=== PATIENT | female | born 1945 | race Caucasian/White ===

== ENCOUNTER 2018-03-01 12:48 | Emergency (ER) | payer MEDICARE, OTHER ==
[~2018-03-01] VITALS: Ht 162.6 cm; Wt 65.8 kg
[2018-03-01] MEDS ORDERED: NS IV 1000 ML 1,000 ML IV ONE (13:10)
--- NOTE | 2018-03-01 13:15 | ED General ---
General Chief Complaint: Fever-Adult/Adol Stated Complaint: FEVER VOMITING HEADACHE BODYACHES Nursing Triage Note: pt reports hsinve flu like symptoms: bodyaches, headache, fever, dry cough, poor appetite starting sunday; seen in dr randle's office and he stated it sounded like the flu and if no improvment to return to his office. pt states she's worsened throughout the week and began n/v/d this am. pt reports having 103 temp last evening. Nursing Sepsis Screen: No Definite Risk Source of Information: Patient, Caregiver History of Present Illness Date Seen by Provider: Mar 01, 2018 Time Seen by Provider: 13:01 Initial Comments Here with report of fever and flulike symptoms including body aches and headache over the last several days. This started on Sunday and has worsened all day. She did have some diarrhea and vomiting today. She was seen by her primary care doctor with these symptoms a few days ago and it was thought to be possibly influenza. She did have 2 tick bites just prior to the onset of these symptoms. She has improved since the vomiting and diarrhea earlier today. Denies breathing problems or chest pain but does feel a little weak. She does have a grandson that lives with her granddaughter down the street. Timing/Duration: 5-6 Days Severity: Moderate Associated Systoms: No Chest Pain, No Cough, No Diaphoresis; Fever/Chills, Headaches, Nausea/Vomiting; No Shortness of Air; Weakness Allergies and Home Medications Allergies Coded Allergies: No Known Drug Allergies (Unverified , 03/01/18) Patient Home Medication List Home Medication List Reviewed: Yes Review of Systems Constitutional: see HPI, chills, fever, weakness EENTM: no symptoms reported Respiratory: cough; No short of breath Cardiovascular: No chest pain, No edema Gastrointestinal: No abdominal pain; diarrhea, nausea, vomiting Genitourinary: no symptoms reported Musculoskeletal: see HPI; No joint pain; muscle pain Skin: no symptoms reported Psychiatric/Neurological: No Symptoms Reported All Other Systems Reviewed Negative Unless Noted: Yes Past Stgohqe-Zqkuyo-Xgmqnp Hx Past Med/Social Hx: Reviewed Nursing Past Med/Soc Hx Patient Social History Alcohol Use: Denies Use Recreational Drug Use: No Smoking Status: Never a Smoker Recent Foreign Travel: No Contact w/Someone Who Travel: No Recent Infectious Disease Expo: No Past Medical History Surgeries: Yes Abdominal, Orthopedic Respiratory: No Cardiac: No Neurological: No Genitourinary: No Gastrointestinal: Yes Abdominal Hernia, Gastroesophageal Reflux Family Medical History Reviewed Nursing Family Hx No Pertinent Family Hx Physical Exam-Suspected Sepsis Physical Exam Vital Signs Vital Signs - First Documented 03/01/18 13:00 Pulse 87 Resp 20 B/P (MAP) 103/57 (72) Pulse Ox 96 O2 Delivery Room Air Capillary Refill : Less Than 3 Seconds Blood Pressure Mean: 72 General Appearance: No Apparent Distress, WD/WN HEENT: PERRL/EOMI, Pharynx Normal Neck: Non Tender, Supple Respiratory: Lungs Clear, Normal Breath Sounds Cardiovascular: Regular Rate, Rhythm, No Murmur Gastrointestinal: Non Tender, Soft Back: Normal Inspection, No CVA Tenderness, No Vertebral Tenderness Extremity: Normal Range of Motion, Non Tender Neurologic/Psychiatric: Alert, Oriented x3, No Motor/Sensory Deficits Skin: normal color, warm/dry Progress/Results/Core Measures Suspected Sepsis Recent Fever Within 48 Hours: Yes Infection Criteria Present: Suspected New Infection New/Unexplained Altered Menta: No Sepsis Screen: No Definite Risk SIRS Temperature: Pulse: 87 Respiratory Rate: 20 Laboratory Tests 03/01/18 13:44: White Blood Count 1.9L Blood Pressure 103 /57 Mean: 72 Laboratory Tests 03/01/18 13:44: Creatinine 0.95, Platelet Count 65L, Total Bilirubin 0.4 Results/Orders Lab Results Laboratory Tests Test 03/01/18 13:44 03/01/18 15:25 Range/Units White Blood Count 1.9 L 4.3-11.0 10^3/uL Red Blood Count 4.22 L 4.35-5.85 10^6/uL Hemoglobin 12.7 11.5-16.0 G/DL Hematocrit 36 35-52 % Mean Corpuscular Volume 86 80-99 FL Mean Corpuscular Hemoglobin 30 25-34 PG Mean Corpuscular Hemoglobin Concent 35 32-36 G/DL Red Cell Distribution Width 14.5 10.0-14.5 % Platelet Count 65 L 130-400 10^3/uL Mean Platelet Volume 11.3 H 7.4-10.4 FL Neutrophils (%) (Auto) 78 H 42-75 % Lymphocytes (%) (Auto) 11 L 12-44 % Monocytes (%) (Auto) 11 0-12 % Eosinophils (%) (Auto) 0 0-10 % Basophils (%) (Auto) 1 0-10 % Neutrophils # (Auto) 1.5 L 1.8-7.8 X 10^3 Lymphocytes # (Auto) 0.2 L 1.0-4.0 X 10^3 Monocytes # (Auto) 0.2 0.0-1.0 X 10^3 Eosinophils # (Auto) 0.0 0.0-0.3 10^3/uL Basophils # (Auto) 0.0 0.0-0.1 10^3/uL Sodium Level 138 135-145 MMOL/L Potassium Level 3.6 3.6-5.0 MMOL/L Chloride Level 106 98-107 MMOL/L Carbon Dioxide Level 21 21-32 MMOL/L Anion Gap 11 5-14 MMOL/L Blood Urea Nitrogen 20 H 7-18 MG/DL Creatinine 0.95 0.60-1.30 MG/DL Estimat Glomerular Filtration Rate 57 BUN/Creatinine Ratio 21 Glucose Level 105 70-105 MG/DL Calcium Level 8.0 L 8.5-10.1 MG/DL Total Bilirubin 0.4 0.1-1.0 MG/DL Aspartate Amino Transf (AST/SGOT) 38 H 5-34 U/L Alanine Aminotransferase (ALT/SGPT) 27 0-55 U/L Alkaline Phosphatase 65 40-136 U/L C-Reactive Protein High Sensitivity 8.04 H 0.00-0.50 MG/DL Total Protein 6.1 L 6.4-8.2 GM/DL Albumin 3.5 3.2-4.5 GM/DL Urine Color YELLOW Urine Clarity CLEAR Urine pH 5 5-9 Urine Specific [place] 1.010 L 1.016-1.022 Urine Protein 1+ H NEGATIVE Urine Glucose (UA) NEGATIVE NEGATIVE Urine Ketones NEGATIVE NEGATIVE Urine Nitrite NEGATIVE NEGATIVE Urine Bilirubin NEGATIVE NEGATIVE Urine Urobilinogen NORMAL NORMAL MG/DL Urine Leukocyte Esterase NEGATIVE NEGATIVE Urine RBC (Auto) 3+ H NEGATIVE Urine RBC 5-10 H /HPF Urine WBC RARE /HPF Urine Crystals NONE /LPF Urine Bacteria NONE /HPF Urine Casts NONE /LPF Urine Mucus NEGATIVE /LPF Urine Culture Indicated NO My Orders Orders - JOSE LIGHT MD Cbc With Automated Diff (03/01/18 13:10) Comprehensive Metabolic Panel (03/01/18 13:10) Hs C Reactive Protein (6/8/18 13:10) Ua Culture If Indicated (03/01/18 13:10) Chest Pa/Lat (2 View) (03/01/18 13:10) Saline Lock/Iv-Start (03/01/18 13:10) Ns Iv 1000 Ml (Sodium Chloride 0.9%) (03/01/18 13:10) Tick Panel With Lyme Eia (03/01/18 13:10) Medications Given in ED Current Medications Medications Dose Ordered Sig/Delvis Route Start Time Stop Time Status Last Admin Dose Admin Sodium Chloride 1,000 ml @ 0 mls/hr Q0M ONCE IV 03/01/18 13:10 03/01/18 13:12 DC 03/01/18 13:52 0 MLS/HR Vital Signs/I&O 03/01/18 13:00 Pulse 87 Resp 20 B/P (MAP) 103/57 (72) Pulse Ox 96 O2 Delivery Room Air Capillary Refill : Less Than 3 Seconds Blood Pressure Mean: 72 Progress Note : Progress Note Seen and evaluated. IV, labs and UA ordered. Chest x-ray ordered. Normal saline 1 L bolus. Monitor patient. We did order to panel with Lyme disease. 1530: I did discuss the case with Dr. Randle. We both agree that initiating treatment for possible tickborne illness is reasonable. Her vomiting has stopped and she feels better now. UA is pending. 1554: UA is negative. I did discuss the labs with Dr. Randle related to the low white count. This may be viral etiology ordered tickborne etiology but these will need to be repeated and he agrees. He will follow that next week. Discharged home with return precautions. Patient and family verbalize understanding instructions and agreement with plan. Diagnostic Imaging Diagonstic Imaging: Xray Plain Films/CT/US/NM/MRI: chest Comments VIA [facility], [facility]. [place], [place] NAME: DANIELLE WILLOUGHBY MED REC#: [id number] PT STATUS: REG ER : 1945 PHYSICIAN: JOSE LIGHT MD ADMIT DATE: 03/01/18/ER Draft Date of Exam:03/01/18 CHEST PA/LAT (2 VIEW) EXAMINATION: PA and lateral chest at 02:48 p.m. INDICATION: Weakness, fever. FINDINGS: There are no prior studies available for comparison. The heart size is within normal limits. The lungs are clear. There is no evidence for failure, pneumonia, or for pleural effusion. The mediastinum is not widened. The osseous structures are intact. IMPRESSION: 1. There is no evidence for an acute cardiopulmonary abnormality. 2. These results were discussed with Dr. Jose Light in the ER. Dictated on workstation # [id number] Dict: 03/01/18 1524 Trans: 03/01/18 1533 [id number] Interpreted by: STEPHEN RENEE MD Electronically signed by: Reviewed: Reviewed by Me, Discussed w/Radiologist Departure Impression Primary Impression: Fever Qualified Codes: R50.9 - Fever, unspecified Additional Impression: Viral syndrome Disposition: HOME, SELF-CARE Condition: Improved Departure-Patient Inst. Decision time for Depature: 15:58 Referrals: CUATE RANDLE MD (PCP/Family) Primary Care Physician Patient Instructions: Fever, Adult (DC), Nausea and Vomiting, Adult (DC), Viral Syndrome (DC), Dehydration, Adult (DC) Add. Discharge Instructions: All discharge instructions reviewed with patient and/or family. Voiced understanding. Drink plenty of fluids by drinking small sips frequently. You may initiate light diet with crackers/toast, applesauce, rice, toast and advance as tolerated. Follow-up with Dr. Garcia next week for recheck and to recheck her blood counts. Return for worse pain, fever, vomiting, weakness, breathing problems or other concerns as needed. You may continue Tylenol/acetaminophen 1000 mg every 8 hours as needed for fever. Scripts Ondansetron (Ondansetron Odt) 4 Mg Tab.rapdis 4 MG PO Q6H PRN for NAUSEA/VOMITING, #8 TAB 0 Refills Prov: JOSE LIGHT MD 03/01/18 Doxycycline Hyclate (Doxycycline Hyclate) 100 Mg Tablet 100 MG PO BID, #20 TAB 0 Refills Prov: JOSE LIGHT MD 03/01/18 JOSE LIGHT MD Mar 01, 2018 13:15
[2018-03-01 13:52] LABS: BASOPHILS % (AUTO) 1 % (0-10); EOSINOPHILS % (AUTO) 0 % (0-10); HEMATOCRIT 36 % (35-52); HEMOGLOBIN 12.7 G/DL (11.5-16.0); LYMPHOCYTES # (AUTO) 0.2 X 10^3 (1.0-4.0); LYMPHOCYTES % (AUTO) 11 % (12-44); MEAN CORPUSCULAR HEMOGLOBIN 30 PG (25-34); MEAN CORPUSCULAR HGB CONC 35 G/DL (32-36); MEAN CORPUSCULAR VOLUME 86 FL (80-99); MEAN PLATELET VOLUME 11.3 FL (7.4-10.4); MONOCYTES # (AUTO) 0.2 X 10^3 (0.0-1.0); MONOCYTES % (AUTO) 11 % (0-12); NEUTROPHILS # (AUTO) 1.5 X 10^3 (1.8-7.8); NEUTROPHILS % (AUTO) 78 % (42-75); PLATELET COUNT 65 10^3/uL (130-400); RED BLOOD COUNT 4.22 10^6/uL (4.35-5.85); RED CELL DISTRIBUTION WIDTH 14.5 % (10.0-14.5); WHITE BLOOD COUNT 1.9 10^3/uL (4.3-11.0)
[2018-03-01 14:19] LABS: ALBUMIN 3.5 GM/DL (3.2-4.5); BILIRUBIN,TOTAL 0.4 MG/DL (0.1-1.0); CREATININE SERUM 0.95 MG/DL (0.60-1.30); POTASSIUM 3.6 MMOL/L (3.6-5.0); TOTAL PROTEIN 6.1 GM/DL (6.4-8.2)
[2018-03-01 15:33] LABS: BILIRUBIN,URINE NEGATIVE (NEGATIVE); CLARITY,URINE CLEAR; COLOR,URINE YELLOW; GLUCOSE, URINE (UA) NEGATIVE (NEGATIVE); KETONES,URINE NEGATIVE (NEGATIVE); LEUKOCYTE ESTERASE ,URINE NEGATIVE (NEGATIVE); NITRITE,URINE NEGATIVE (NEGATIVE); PH,URINE 5 (5-9); PROTEIN,URINE 1+ (NEGATIVE); UROBILINOGEN,URINE NORMAL (NORMAL)
--- NOTE | 2018-03-01 15:34 | Diagnostic Imaging Report ---
EXAMINATION: PA and lateral chest at 02:48 p.m. INDICATION: Weakness, fever. FINDINGS: There are no prior studies available for comparison. The heart size is within normal limits. The lungs are clear. There is no evidence for failure, pneumonia, or for pleural effusion. The mediastinum is not widened. The osseous structures are intact. IMPRESSION: 1. There is no evidence for an acute cardiopulmonary abnormality. 2. These results were discussed with Dr. Jose Lee in the ER. Dictated by: Dictated on workstation # [id number]
[2018-03-01 15:42] LABS: WBC,URINE RARE /HPF
[2018-03-01] MEDS ORDERED: ONDA4TAB11 PO (16:01)
[2018-03-01] MEDS ORDERED: DOXY100T2 PO (16:01)
[2018-03-01 16:21] VITALS: BP 115/52
== END 2018-03-01 16:21 | disposition home or self-care (01) ==
LOC: EDUNIT# 12:48 → ER 12:50
DX: B34.9 Viral infection, unspecified (principal); K21.9 Gastro-esophageal reflux disease without esophagitis; Z87.19 Personal history of other diseases of the digestive system
CPT/HCPCS: 36415; 71046; 80053; 81000; 85025; 86141; 86618; 86666; 86668; 86757; 96360

== ENCOUNTER 2020-01-09 22:35 | Emergency (ER) | payer MEDICARE, OTHER ==
[~2020-01-09] VITALS: Ht 162 cm; Wt 65.9 kg
[~2020-01-09 22:35] MED LIST: DOXY100T2 PO; ONDA4TAB11 PO
--- OUTSIDE RECORDS SUMMARY | 2020-01-09 22:41 | XMS REPORT | Continuity of Care Document ---
Author Organization Unknown Address Unknown Phone Unavailable Allergies Active Description Code Type Severity Reaction Onset Reported/Identified Relationship to Patient Clinical Status Yes No Known Drug Allergies [id number] Drug Allergy Unknown N/A 03/01/2018 Medications There is no data. Problems Date Dx Coded Attending Type Code Diagnosis Diagnosed By 09/10/2015 Ot V76.12 09/10/2015 Ot V76.12 09/10/2015 Ot 793.82 09/10/2015 Ot V76.12 09/10/2015 NADINE DE LOS SANTOS, RYLEE Reyes Ot 724.02 09/10/2015 HARRY DE LOS SANTOS, CUATE Whitt Ot V76. 12 05/25/2016 Ot V76.12 OTH SCREEN MAMMO- MALIGN NEOPLASM OF [place] 05/25/2016 Ot 793.82 INC ONCLUSIVE MAMMOGRAM 05/25/2016 Ot V76.12 OTH SCREEN MAMMO- MALIGN NEOPLASM OF [place] 05/25/2016 NADINE DE LOS SANTOS, RYLEE Reyes Ot 724.02 SPINAL STENOSIS, LUMBAR REG, W/OUT NEURO 05/25/2016 HARRY DE LOS SANTOS, CUATE Whitt Ot V76. 12 OTH SCREEN MAMMO-MALIGN NEOPLASM OF [place] 11/16/2016 Ot 793.82 INC ONCLUSIVE MAMMOGRAM 11/16/2016 Ot V76.12 OTH SCREEN MAMMO- MALIGN NEOPLASM OF [place]AN 11/16/2016 NADINE DE LOS SANTOS, RYLEE Reyes Ot 724.02 SPINAL STENOSIS, LUMBAR REG, W/OUT NEURO 11/16/2016 HARRY DE LOS SANTOS, CUATE Whitt Ot V76. 12 OTH SCREEN MAMMO-MALIGN NEOPLASM OF [place] 03/01/2018 KULDEEP DE LOS SANTOS, POLO Whitt Ot B34.9 VIRAL INFECTION, UNSPECIFIED 03/01/2018 POLO LIGHT MD Ot K21.9 GASTRO-ESOPHAGEAL REFLUX DISEASE WITHOUT 03/01/2018 POLO LIGHT MD Ot R50.9 FEVER, UNSPECIFIED 03/01/2018 POLO LIGHT MD Ot Z87.19 PERSONAL HISTORY OF OTHER DISEASES OF TH Procedures There is no data. Results Test Result Range Complete blood count (CBC) with automate d white blood cell (WBC) differential - 03/01/18 13:44 Blood leukocytes automated count (number/volume) 1.9 10*3/uL 4.3-11.0 Blood erythrocytes automated count (number/volume) 4.22 10*6/uL 4.35-5.85 Venous blood hemoglobin measurement (mass/volume) 12.7 g/dL 11.5-16.0 Blood hematocrit (volume fraction) 36 % 35-52 Automated erythrocyte mean corpuscular volume 86 [ foz_us] 80-99 Automated erythrocyte mean corpuscular h emoglobin (mass per erythrocyte) 30 pg 25-34 Automated erythrocyte mean corpuscular h emoglobin concentration measurement (mass/volume) 35 g/dL 32-36 Automated erythrocyte distribution width ratio 14. 5 % 10.0- 14.5 Automated blood platelet count (count/volume) 65 1 0*3/uL 130-400 Automated blood platelet mean volume measurement 11.3 [foz_us] 7.4-10.4 Automated blood neutrophils/100 leukocytes 78 % 42-75 Automated blood lymphocytes/100 leukocytes 11 % 12-44 Blood monocytes/100 leukocytes 11 % 0-12 Automated blood eosinophils/100 leukocytes 0 % 0-10 Automated blood basophils/100 leukocytes 1 % 0-10 Blood neutrophils automated count (number/volume) 1.5 10*3 1.8-7.8 Blood lymphocytes automated count (number/volume) 0.2 10*3 1.0-4.0 Blood monocytes automated count (number/volume) 0. 2 10*3 0.0-1.0 Automated eosinophil count 0.0 10*3/uL 0 .0-0.3 Automated blood basophil count (count/volume) 0.0 10*3/uL 0.0-0.1 Comprehensive metabolic panel - 03/01/18 13:44 Serum or plasma sodium measurement (moles/volume) 138 mmol/L 135-145 Serum or plasma potassium measurement (moles/volume) 3.6 mmol/L 3.6-5.0 Serum or plasma chloride measurement (moles/volume) 106 mmol/L 98-107 Carbon dioxide 21 mmol/L 21-32 Serum or plasma anion gap determination (moles/volume) 11 mmol/L 5-14 Serum or plasma urea nitrogen measurement (mass/volume ) 20 mg/dL 7-18 Serum or plasma creatinine measurement (mass/volume) 0.95 mg/dL 0.60-1.30 Serum or plasma urea nitrogen/creatinine mass ratio 21 NRG Serum or plasma creatinine measurement w ith calculation of estimated glomerular filtration rate 57 NRG Serum or plasma glucose measurement (mass/volume) 105 mg/dL 70-105 Serum or plasma calcium measurement (mass/volume) 8.0 mg/dL 8.5-10.1 Serum or plasma total bilirubin measurement (mass/volu me) 0.4 mg/dL 0.1-1.0 Serum or plasma alkaline phosphatase ryder surement (enzymatic activity/volume) 65 U/L 40-136 Serum or plasma aspartate aminotransfera se measurement (enzymatic activity/volume) 38 U/L 5-34 Serum or plasma alanine aminotransferase measurement (enzymatic activity/volume) 27 U/L 0-55 Serum or plasma protein measurement (mass/volume) 6.1 g/dL 6.4-8.2 Serum or plasma albumin measurement (mass/volume) 3.5 g/dL 3.2-4.5 Serum or plasma C reactive protein measu rement (mass/volume) - 03/01/18 13:44 Serum or plasma C reactive protein measurement (mass/v olume) 8.04 mg/dL 0.00-0.50 Tick identification panel - 03/01/18 13: 44 Serum Ehrlichia chaffeensis IgG antibody detection <1:16 <1:16 Serum Ehrlichia chaffeensis IgM antibody detection <1:10 <1:10 Serum Rickettsia rickettsii IgG antibody assay (units/ volume) < <1:16 [place] spotted fever panel < <1:10 Francisella tularensis antibody assay <1:20 NRG LYME AB G M < 0.01 0.00-0.89 Interpretation of Lyme disease antibody assay Nega tive Negative Complete urinalysis with reflex to cultu re - 03/01/18 15:25 Urine color determination YELLOW NRG Urine clarity determination CLEAR NR G Urine pH measurement by test strip 5 5-9 Specific gravity of urine by test strip 1.010 1.016-1.022 Urine protein assay by test strip, semi-quantitative 1+ NEGATIVE Urine glucose detection by automated test strip NE GATIVE NEGATIVE Erythrocytes detection in urine sediment by light micr oscopy 3+ NEGATIVE Urine ketones detection by automated test strip NE GATIVE NEGATIVE Urine nitrite detection by test strip NEGATIVE NEGATIVE Urine total bilirubin detection by test strip NEGA TIVE NEGATIVE Urine urobilinogen measurement by automated test strip (mass/volume) NORMAL NORMAL Urine leukocyte esterase detection by dipstick NEG ATIVE NEGATIVE Automated urine sediment erythrocyte cou nt by microscopy (number/high power field) [HPF] NRG Automated urine sediment leukocyte count by microscopy (number/high power field) RARE NRG Bacteria detection in urine sediment by light microsco py NONE NRG Crystals detection in urine sediment by light microsco py NONE NRG Casts detection in urine sediment by light microscopy NONE NRG Mucus detection in urine sediment by light microscopy NEGATIVE NRG Complete urinalysis with reflex to culture NO NRG Encounters ACCT No. Visit Date/Time Discharge Status Pt. Type Provider Facility Loc./Unit Complaint [id number] 03/01/2018 12:50:00 018 16:21:00 DIS Emergency POLO LIGHT MD [facility] ER FEVER VOMITING HEADACHE BODYACHES [id number] 03/26/2014 10:30:00 014 23:59:59 CLS Outpatient CUATE MCDONALD MD [facility] RAD ROUTINE [id number] 01/30/2013 09:40:00 013 23:59:59 CLS Outpatient RYLEE MCCOY MD [facility] RAD RT FOOT DROP [id number] 06/12/2012 13:41:00 Document Registration [id number] 03/31/2011 13:21:00 Document Registration [id number] 04/15/2010 08:05:00 Document Registration
[2020-01-09 23:05] LABS: BASOPHILS # (AUTO) 0.1 10^3/uL (0.0-0.1); BASOPHILS % (AUTO) 1 % (0-10); EOSINOPHILS # (AUTO) 0.3 10^3/uL (0.0-0.3); EOSINOPHILS % (AUTO) 3 % (0-10); HEMATOCRIT 38 % (35-52); HEMOGLOBIN 12.5 G/DL (11.5-16.0); LYMPHOCYTES # (AUTO) 2.4 X 10^3 (1.0-4.0); LYMPHOCYTES % (AUTO) 24 % (12-44); MEAN CORPUSCULAR HEMOGLOBIN 29 PG (25-34); MEAN CORPUSCULAR HGB CONC 33 G/DL (32-36); MEAN CORPUSCULAR VOLUME 89 FL (80-99); MEAN PLATELET VOLUME 9.5 FL (7.4-10.4); MONOCYTES # (AUTO) 0.9 X 10^3 (0.0-1.0); MONOCYTES % (AUTO) 9 % (0-12); NEUTROPHILS # (AUTO) 6.5 X 10^3 (1.8-7.8); NEUTROPHILS % (AUTO) 64 % (42-75); PLATELET COUNT 268 10^3/uL (130-400); RED CELL DISTRIBUTION WIDTH 14.3 % (10.0-14.5); WHITE BLOOD COUNT 10.1 10^3/uL (4.3-11.0)
[2020-01-09] MEDS ORDERED: LACTATED RINGERS 1,000 ML IV ONE (23:09)
[2020-01-09 23:14] LABS: POTASSIUM 3.7 MMOL/L (3.6-5.0)
[2020-01-09 23:15] LABS: CALCIUM 8.7 MG/DL (8.5-10.1)
[2020-01-09] MEDS ORDERED: MECLIZINE 25 MG (ANTIVERT) TAB PO ONE (23:15)
[2020-01-09] MEDS ORDERED: DEXAMETHASONE 10 MG/ML (DECADRON) 1 ML VIAL IV ONE (23:15)
[2020-01-09 23:16] LABS: TOTAL PROTEIN 6.8 GM/DL (6.4-8.2)
[2020-01-09 23:18] LABS: BILIRUBIN,TOTAL 0.2 MG/DL (0.1-1.0)
[2020-01-09 23:20] LABS: CREATININE SERUM 1.09 MG/DL (0.60-1.30)
[2020-01-09 23:24] LABS: BILIRUBIN,URINE NEGATIVE (NEGATIVE); CLARITY,URINE CLEAR; COLOR,URINE YELLOW; GLUCOSE, URINE (UA) NEGATIVE (NEGATIVE); KETONES,URINE NEGATIVE (NEGATIVE); LEUKOCYTE ESTERASE ,URINE 1+ (NEGATIVE); NITRITE,URINE NEGATIVE (NEGATIVE); PH,URINE 5.5 (5-9); PROTEIN,URINE NEGATIVE (NEGATIVE)
[2020-01-09 23:31] LABS: BACTERIA,URINE TRACE /HPF
--- NOTE | 2020-01-09 23:42 | ED General ---
General Chief Complaint: Abdominal/GI Problems Stated Complaint: N/V/WEAKNESS Nursing Triage Note: Pt to [facility] via [facility] with c/o N/V/dizziness x 2 hrs. EMS gave 4mg zofran in route and pt states her vomiting is relievd but still "feels queazy". Pt also complaining of a headache. Nursing Sepsis Screen: No Definite Risk Source of Information: Patient Exam Limitations: No Limitations History of Present Illness Date Seen by Provider: Jan 09, 2020 Time Seen by Provider: 23:02 Initial Comments Here with report of dizziness associated with nausea and vomiting over the last 2 hours. States that she had gone to her daughter's house and lives a block away and had dinner period after she returned home she was talking with her grandson. She turned to put her purse down and became quite dizzy and had to sit down. She subsequently started having nausea and vomiting with the dizziness. She states that she's had similar episodes along time ago with ear problems and she has bilateral myringotomy tubes for this. States that she's not had a problem for a while. Denies fevers, chills, chest pain or breathing problems. Denies abdominal pain or dysuria. Denies diarrhea. EMS was summoned after she had persistence of symptoms and brought her here. They did give Zofran 4 mg IV which is helped. She has not vomited since arriving to the ED. She does report a fall a couple weeks ago she thinks in january of hit her head at that time but doesn't remember all the details. Does have asthma and has had to use her inhaler more recently. Not currently short of breath but states that she has been and it has been improved with her inhaler. Timing/Duration: 1-3 Hours Severity: Moderate Modifying Factors: worse with Movement; improves with Rest Associated Systoms: No Cough, No Fever/Chills, No Headaches; Nausea/Vomiting; No Shortness of Air, No Weakness Allergies and Home Medications Allergies Coded Allergies: No Known Drug Allergies (Unverified , 03/01/18) Home Medications Doxycycline Hyclate 100 Mg Tablet, 100 MG PO BID Prescribed by: POLO LIGHT on 03/01/18 1601 Ondansetron 4 Mg Tab.rapdis, 4 MG PO Q6H PRN for NAUSEA/VOMITING Prescribed by: POLO LIGHT on 03/01/18 1601 Patient Home Medication List Home Medication List Reviewed: Yes Review of Systems Review of Systems Constitutional: see HPI; No chills; dizziness; No fever, No weakness EENTM: see HPI; No ear pain, No nose congestion, No throat pain Respiratory: see HPI; No cough Cardiovascular: No chest pain, No edema, No palpitations Gastrointestinal: see HPI Genitourinary: no symptoms reported Musculoskeletal: no symptoms reported Skin: no symptoms reported Psychiatric/Neurological: See HPI All Other Systems Reviewed Negative Unless Noted: Yes Past Uwenaoy-Wchdrs-Djionb Hx Past Med/Social Hx: Reviewed Nursing Past Med/Soc Hx Patient Social History Alcohol Use: Denies Use Number of Drinks Today: Alcohol Beverage of Choice: Wine Recreational Drug Use: No Smoking Status: Never a Smoker 2nd Hand Smoke Exposure: No Recent Foreign Travel: No Contact w/Someone Who Travel: No Recent Infectious Disease Expo: No Recent Hopitalizations: No Immunizations Up To Date Tetanus Booster (TDap): More than 5yrs Date of Pneumonia Vaccine: Sep 24, 2013 Seasonal Allergies Seasonal Allergies: Yes Past Medical History Surgeries: Yes Abdominal, Ear Surgery, Orthopedic Respiratory: No Asthma Cardiac: No Hypertension Neurological: No Female Reproductive Disorders: Endometriosis COLLECTIONS MANAGER History: Hysterectomy Genitourinary: No Gastrointestinal: Yes Abdominal Hernia, Gastroesophageal Reflux Musculoskeletal: Yes Osteoporosis, Fractures Endocrine: Yes (partial thyroid) Hypothyroidsim Loss of Vision: Denies Hearing Impairment: Hard of Hearing, Hearing Aide Right, Hearing Aide Left Cancer: Yes Skin Did You Recieve Any Treatments: Yes What Type of Treatment Did You: Surgical Intervention Psychosocial: No Integumentary: No Blood Disorders: No Family Medical History Reviewed Nursing Family Hx No Pertinent Family Hx Physical Exam Vital Signs Vital Signs - First Documented 01/09/20 22:37 Temp 35.4 Pulse 77 Resp 18 B/P (MAP) 149/84 (105) Pulse Ox 97 O2 Delivery Room Air Capillary Refill : Less Than 3 Seconds Height, Weight, BMI Height: 5'4.00" Weight: 145lbs. oz. 65.862476mf; 25.00 BMI Method:Stated General Appearance: WD/WN, Mild Distress (dizziness) Eyes: Bilateral Eye Other (no nystagmus noted) HEENT: PERRL/EOMI, Pharynx Normal, Other (bilateral myringotomy tubes noted) Neck: Non Tender, Supple Respiratory: Lungs Clear, Normal Breath Sounds Cardiovascular: Regular Rate, Rhythm, No Murmur Gastrointestinal: Non Tender, Soft Back: Normal Inspection, No CVA Tenderness, No Vertebral Tenderness Extremity: Normal Range of Motion, Non Tender Neurologic/Psychiatric: Alert, Oriented x3, No Motor/Sensory Deficits, Normal Mood/Affect Skin: Normal Color, Warm/Dry Progress/Results/Core Measures Suspected Sepsis Recent Fever Within 48 Hours: No Infection Criteria Present: None New/Unexplained Altered Menta: No Sepsis Screen: No Definite Risk SIRS Temperature: Pulse: 77 Respiratory Rate: 18 Laboratory Tests 01/09/20 22:55: White Blood Count 10.1 Blood Pressure 149 /84 Mean: 105 Laboratory Tests 01/09/20 22:55: Creatinine 1.09, Platelet Count 268, Total Bilirubin 0.2 Results/Orders Lab Results Laboratory Tests Test 01/09/20 22:55 01/09/20 23:17 Range/Units White Blood Count 10.1 4.3-11.0 10^3/uL Red Blood Count 4.32 L 4.35-5.85 10^6/uL Hemoglobin 12.5 11.5-16.0 G/DL Hematocrit 38 35-52 % Mean Corpuscular Volume 89 80-99 FL Mean Corpuscular Hemoglobin 29 25-34 PG Mean Corpuscular Hemoglobin Concent 33 32-36 G/DL Red Cell Distribution Width 14.3 10.0-14.5 % Platelet Count 268 130-400 10^3/uL Mean Platelet Volume 9.5 7.4-10.4 FL Neutrophils (%) (Auto) 64 42-75 % Lymphocytes (%) (Auto) 24 12-44 % Monocytes (%) (Auto) 9 0-12 % Eosinophils (%) (Auto) 3 0-10 % Basophils (%) (Auto) 1 0-10 % Neutrophils # (Auto) 6.5 1.8-7.8 X 10^3 Lymphocytes # (Auto) 2.4 1.0-4.0 X 10^3 Monocytes # (Auto) 0.9 0.0-1.0 X 10^3 Eosinophils # (Auto) 0.3 0.0-0.3 10^3/uL Basophils # (Auto) 0.1 0.0-0.1 10^3/uL Sodium Level 141 135-145 MMOL/L Potassium Level 3.7 3.6-5.0 MMOL/L Chloride Level 107 98-107 MMOL/L Carbon Dioxide Level 23 21-32 MMOL/L Anion Gap 11 5-14 MMOL/L Blood Urea Nitrogen 14 7-18 MG/DL Creatinine 1.09 0.60-1.30 MG/DL Estimat Glomerular Filtration Rate 49 BUN/Creatinine Ratio 13 Glucose Level 100 70-105 MG/DL Calcium Level 8.7 8.5-10.1 MG/DL Corrected Calcium 8.7 8.5-10.1 MG/DL Total Bilirubin 0.2 0.1-1.0 MG/DL Aspartate Amino Transf (AST/SGOT) 12 5-34 U/L Alanine Aminotransferase (ALT/SGPT) 10 0-55 U/L Alkaline Phosphatase 76 40-136 U/L Total Protein 6.8 6.4-8.2 GM/DL Albumin 4.0 3.2-4.5 GM/DL Lipase 15 8-78 U/L Urine Color YELLOW Urine Clarity CLEAR Urine pH 5.5 5-9 Urine Specific [place] 1.020 1.016-1.022 Urine Protein NEGATIVE NEGATIVE Urine Glucose (UA) NEGATIVE NEGATIVE Urine Ketones NEGATIVE NEGATIVE Urine Nitrite NEGATIVE NEGATIVE Urine Bilirubin NEGATIVE NEGATIVE Urine Urobilinogen 0.2 < = 1.0 MG/DL Urine Leukocyte Esterase 1+ H NEGATIVE Urine RBC (Auto) 2+ H NEGATIVE Urine RBC 5-10 H /HPF Urine WBC 2-5 /HPF Urine Crystals NONE /LPF Urine Bacteria TRACE /HPF Urine Casts NONE /LPF Urine Mucus SMALL H /LPF Urine Culture Indicated YES My Orders Orders - POLO LIGHT MD Lactated Ringers (Lr 1000 Ml Iv Solution (01/09/20 23:09) Dexamethasone Injection (Decadron Inject (01/09/20 23:15) Meclizine Tablet (Antivert Tablet) (01/09/20 23:15) Ct Head Wo (01/09/20 23:30) Ondansetron Injection (Zofran Injectio (01/10/20 00:30) Ondansetron Injection (Zofran Injectio (01/10/20 00:16) Medications Given in ED Current Medications Medications Dose Ordered Sig/Delvis Route Start Time Stop Time Status Last Admin Dose Admin Dexamethasone Sodium Phosphate 10 mg ONCE ONCE IV 01/09/20 23:15 01/09/20 23:16 DC 01/09/20 23:18 10 MG Lactated Ringer's 1,000 ml @ 0 mls/hr Q0M ONCE IV 01/09/20 23:09 01/09/20 23:11 DC 01/09/20 23:18 0 MLS/HR Meclizine HCl 25 mg ONCE ONCE PO 01/09/20 23:15 01/09/20 23:16 DC 01/09/20 23:19 25 MG Ondansetron HCl 4 mg ONCE ONCE IVP 01/10/20 00:30 01/10/20 00:31 DC 01/10/20 00:23 4 MG Vital Signs/I&O 01/09/20 22:37 Temp 35.4 Pulse 77 Resp 18 B/P (MAP) 149/84 (105) Pulse Ox 97 O2 Delivery Room Air Capillary Refill : Less Than 3 Seconds Blood Pressure Mean: 105 Progress Note : Progress Note Seen and evaluated. IV by EMS. Labs and UA ordered. LR 1 L bolus, meclizine 25 mg by mouth and Decadron 10 mg IV ordered. We will get CT of the head do to history of fall and dizziness. Monitor patient. 0021: CT complete and negative. Labs reassuring. Patient states she is feeling better but still has a little bit of nausea. We will give an additional 4 mg of Zofran IV while fluids are continuing. Monitor patient. 0047: Overall feeling better. Discharged home with return precautions. Patient verbalize understanding instructions and agreement with plan. Diagnostic Imaging Diagonstic Imaging: CT Plain Films/CT/US/NM/MRI: head Comments No acute intracranial pathology Reviewed: Reviewed [facility] Departure Impression Primary Impression: Vertigo, benign positional Qualified Codes: H81.10 - Benign paroxysmal vertigo, unspecified ear Disposition: HOME, SELF-CARE Condition: Improved Departure-Patient Inst. Decision time for Depature: 00:48 Referrals: CUATE MCDONALD MD (PCP/Family) Primary Care Physician Patient Instructions: Vertigo (a Type of Dizziness) (DC) Add. Discharge Instructions: All discharge instructions reviewed with patient and/or family. Voiced understanding. Continue home medications as previously prescribed. You may take jfep-juc-kikalog meclizine (brand name is Antivert) 25 mg every 8 hours as needed for dizziness. Drink plenty of fluids. Follow-up with your Dr. in 2-3 days for recheck and further evaluation. Return for persistent or worsening dizziness, weakness especially one-sided, difficulty with speech or walking, persistent vomiting or other concerns as needed. Copy Copies To 1: CUATE MCDONALD MD, TIMOTHY D MD Jan 09, 2020 23:42
[2020-01-10] MEDS ORDERED: ONDANSETRON 4 MG/2 ML (SDV) Z0FRAN ONE (00:16)
[2020-01-10] MEDS ORDERED: ONDANSETRON 4 MG/2 ML (SDV) Z0FRAN IVP ONE (00:30)
[2020-01-10 01:07] VITALS: BP 114/88
--- NOTE | 2020-01-10 06:37 | Diagnostic Imaging Report ---
PROCEDURE: CT head without contrast. TECHNIQUE: Multiple contiguous axial images were obtained through the brain without the use of intravenous contrast. Auto Exposure Controls were utilized during the CT exam to meet ALARA standards for radiation dose reduction. INDICATION: Nausea and vomiting and weakness. No prior studies are available for comparison. The ventricles and sulci are appropriate for the patient's age. No sulcal effacement or midline shift is identified. No acute intra-axial or extra-axial hemorrhage is detected. Cisterns are patent. Visualized paranasal sinuses are clear. IMPRESSION: No acute intracranial process is detected. Dictated by: Dictated on workstation # [id number]
== END 2020-01-10 00:56 | disposition home or self-care (01) ==
LOC: EDUNIT# 22:35 → ER 22:36
DX: H81.10 Benign paroxysmal vertigo, unspecified ear (principal); J45.909 Unspecified asthma, uncomplicated; Z96.22 Myringotomy tube(s) status; Z85.828 Personal history of other malignant neoplasm of skin
CPT/HCPCS: 36415; 70450; 80053; 81000; 83690; 85025; 87088

== ENCOUNTER 2021-12-06 10:27 | Outpatient (RCR) | payer MEDICARE, OTHER | END 2021-12-22 | disposition home or self-care (01) | PROVIDERS: ATTEND Nurse Practitioner Family | DX: M54.16 Radiculopathy, lumbar region (principal); I10 Essential (primary) hypertension; J45.909 Unspecified asthma, uncomplicated ==

== ENCOUNTER → 2021-12-14 | Outpatient (CLI) | payer MEDICARE, OTHER ==
[~2021-12-14] MED LIST changes: +GADOTERATE 0.5 MMOL/ML (CLARISCAN) 20 ML VIAL IV ONE
--- NOTE | 2021-12-14 11:26 | Diagnostic Imaging Report ---
PROCEDURE: MRI lumbar spine with and without contrast. TECHNIQUE: Multiplanar, multisequence MRI of the lumbar spine was performed with and without contrast. INDICATION: Low back pain. Lumbar radiculopathy. COMPARISON: 01/30/2013. FINDINGS: The last well-formed disc space will be labeled L5-S1 for the purposes of this examination. There is marked disc height loss of the L2 vertebral body measuring about 70% centrally. No extension to the posterior cortex is seen and there is no significant retropulsion. There is ill-defined T1 hypointensity. There is diffuse T2 hyperintensity and enhancement throughout L2. No cortical breach is seen. There is no spondylolisthesis. No other fractures are seen. There is multilevel disc height loss throughout the entire lumbar spine, most pronounced at L3-L4, L4-L5, and L5-S1. Soft tissues about the lumbar spine demonstrate no acute abnormality. There are multiple cysts seen in the right lobe of the liver and in the right kidney which appear to be simple. T12-L1: No significant disc bulge. No spinal canal or foraminal stenosis. L1-L2: Diffuse disc bulge, facet arthropathy, and ligamentous infolding. Moderate spinal canal stenosis with mild bilateral foraminal narrowing. L2-L3: Diffuse disc bulge with facet arthropathy and ligamentous infolding. Mild spinal canal narrowing. Mild left foraminal narrowing. No right foraminal stenosis. L3-L4: Diffuse disc bulge with facet arthropathy and ligamentous infolding. Moderate spinal canal stenosis. Narrowing of the lateral recesses. Mild bilateral foraminal narrowing. L4-L5: Diffuse disc bulge with facet arthropathy and ligamentous infolding. Effacement of the lateral recesses, particularly on the left. Mild spinal canal narrowing. Severe right and mild left foraminal stenosis. L5-S1: Diffuse disc bulge and facet arthropathy. No spinal canal stenosis. Severe bilateral foraminal stenosis. IMPRESSION: 1. Acute compression fracture of the L2 vertebral body with no retropulsion. 2. Multilevel degenerative changes with moderate spinal canal stenosis at L1-L2 and L3-L4. Multilevel foraminal stenosis, most severe at L4-L5 and L5-S1. Dictated by: Dictated on workstation # [id number]
== END ==
LOC: RAD 09:49
PROVIDERS: ATTEND Nurse Practitioner Family
DX: M48.56XA Collapsed vertebra, not elsewhere classified, lumbar region, initial encounter for fracture (principal); M47.26 Other spondylosis with radiculopathy, lumbar region; M48.061 Spinal stenosis, lumbar region without neurogenic claudication; M48.07 Spinal stenosis, lumbosacral region
CPT/HCPCS: 72158

== ENCOUNTER 2022-05-04 08:40 | Outpatient (CLI) | payer MEDICARE, OTHER ==
[~2022-05-04] VITALS: Ht 162.6 cm; Wt 70.8 kg
[~2022-05-04 08:40] MED LIST changes: -GADOTERATE 0.5 MMOL/ML (CLARISCAN) 20 ML VIAL IV ONE
[2022-05-05] MEDS ORDERED: MELA10TA2 PO (13:02)
[2022-05-05] MEDS ORDERED: DIPH25CA79 PO (13:02)
[2022-05-05] MEDS ORDERED: MAGN400C PO (13:02)
[2022-05-05] MEDS ORDERED: CALC600T91 PO (13:02)
[2022-05-05] MEDS ORDERED: DOCU100T7 PO (13:02)
[2022-05-05] MEDS ORDERED: BUDE10.7 IH (13:02)
[2022-05-05] MEDS ORDERED: RIZA10TA94 PO (13:02)
[2022-05-05] MEDS ORDERED: HYDR12.56 PO (13:02)
[2022-05-05] MEDS ORDERED: LEVO88TA2 PO (13:02)
[2022-05-05] MEDS ORDERED: NAPR220C11 PO (13:02)
[2022-05-05] MEDS ORDERED: CARB1TAB19 PO (13:02)
[2022-05-05] MEDS ORDERED: CHON400C PO (13:02)
[2022-05-05] MEDS ORDERED: MULT-974 PO (13:02)
[2022-05-05] MEDS ORDERED: ESCI20TA39 PO (13:02)
[2022-05-05] MEDS ORDERED: CARB1DRO15 OP (13:02)
[2022-05-05] MEDS ORDERED: IRBE150T23 PO (13:02)
[2022-05-05] MEDS ORDERED: CHOL500061 PO (13:02)
[2022-05-05] MEDS ORDERED: RT-ALBUINH IH (13:02)
== END 2022-05-05 13:03 | disposition home or self-care (01) ==
LOC: PREOP 08:40
PROVIDERS: ATTEND Internal Medicine
DX: Z01.818 Encounter for other preprocedural examination (principal)

== ENCOUNTER 2022-05-10 07:10 | Day surgery (SDC) | payer MEDICARE, OTHER ==
--- NOTE | 2022-05-04 09:15 | HISTORY AND PHYSICAL ---
DATE OF SERVICE: EGD HISTORY AND PHYSICAL HISTORY OF PRESENT ILLNESS: The patient is a 77-year-old white female reporting a 3 or 4-month history of dysphagia and has gotten worse over the past month. She reports she has occasional reflux symptoms that she takes ewys-vlo-jujqfkn antacid for with relief. She denies nighttime symptoms. The last 2 evenings, she has had dysphagia to solids that required regurgitation to clear. She denies melena or bright red blood per rectum. She had not previously complained of any reflux type symptoms and has no past history of EGD or esophageal dilatation per her report are noted on record review. There has been no associated weight loss and she denies painful swallowing. She has had no cough or sore throat. PHYSICAL EXAMINATION: GENERAL: Reveals a white female appeared to be in no acute distress. There is no evidence for pallor. VITAL SIGNS: Blood pressure 124/70, heart rate 70 and regular. Weight stable at 156.8 pounds. CHEST: Clear. CARDIOVASCULAR: Reveals regular rate and rhythm without murmur, S3 or S4. ABDOMEN: Soft, supple without mass, organomegaly or tenderness. EXTREMITIES: Reveal no cyanosis, clubbing or edema. ASSESSMENT AND PLAN: The patient is being set up for EGD evaluation due to dysphagia to solids with likely dilatation to follow. Advised liquid, soft solid diet with careful attention to mastication, taking smaller bites and drinking more fluids with meals. For now, discontinue p.r.n. antacids with further recommendations pending EGD evaluation. Job ID: [id number] DocumentID: [id number] Dictated Date: 05/03/2022 16:16:23 Hand Icer Date: 05/03/2022 17:25:53 Dictated By: CUATE MCDONALD MD
[~2022-05-10] VITALS: Ht 162.6 cm; Wt 70.8 kg
[~2022-05-10 07:10] MED LIST changes: +BUDE10.7 IH; +CALC600T91 PO; +CARB1DRO15 OP; +CARB1TAB19 PO; +CHOL500061 PO; +CHON400C PO; +DIPH25CA79 PO; +DOCU100T7 PO; +ESCI20TA39 PO; +HYDR12.56 PO; +IRBE150T23 PO; +LEVO88TA2 PO; +MAGN400C PO; +MELA10TA2 PO; +MULT-974 PO; +NAPR220C11 PO; +RIZA10TA94 PO; +RT-ALBUINH IH
[2022-05-10] MEDS ORDERED: LACTATED RINGERS 1,000 ML IV STA (07:12)
[2022-05-10] MEDS ORDERED: HURRICAINE EXT TUBE (BENZOCAINE) XX PRN (07:15)
[2022-05-10] MEDS ORDERED: PROPOFOL INJECTION 50 ML IV ONE (07:22)
[2022-05-10 07:27] VITALS: BP 135/60
--- NOTE | 2022-05-10 07:36 | Pre-Op Note & Conscious Sedat ---
Pre-Operative Progress Note Date H&P Reviewed: May 10, 2022 Time H&P Reviewed: 07:15 History & Physical: H&P Reviewed, Patient Examed, No changes noted Pre-Op Diagnosis: dysphasia Conscious Sedation Pre-Proced ASA Score 2 For ASA 3 and 4: Consider anesthesia and medical clearance. Also, for patients with a history of failed moderate sedation consider anesthesia. Airway Lungs Heart ASA score ASA 1: a normal healthy patient ASA 2: a patient with a mild systemic disease (mid diabetes, controlled hypertension, obesity ASA 3: a patient with a severe systemic disease that limits activity (angina, COPD, prior Myocardial infarction) ASA 4: a patient with an incapacitating disease that is a constant threat to life (CHF, renal failure) ASA 5: a moribund patient not expected to survive 24 hrs. (ruptured aneurysm) ASA 6: a declared brain- patient whose organs are being harvested. For emergent operations, add the letter E after the classification Mallampati Classification Grade 2 Sedation Plan Analgesia, Amnesia, Plan communicated to team members, Discussed options with patient/fam, Discussed risks with patient/fam The patient is an appropriate candidate to undergo the planned procedure, sedation, and anesthesia. The patient immediately re-assessed prior to indication. CUATE MCDONALD MD May 10, 2022 07:35
--- NOTE | 2022-05-10 08:09 | Progress Note-Post Operative ---
Post-Procedure Note Physician (s)/Refrigeration Mechanic Helper (s) Physician CUATE MCDONALD MD Pre-Procedure Diagnosis Pre-Procedure Diagnosis: dysphasia Post-Procedure Diagnosis Post-operative diagnosis: benign appearing esophageal stricture GE junction dilated with 20mm baloon dilator. CUATE MCDONALD MD May 10, 2022 08:09
[2022-05-10 08:32] VITALS: BP 130/79
--- NOTE | 2022-05-10 08:44 | Anesthesia-General Post-Op ---
MAC Patient Condition Mental Status/LOC: Same as Preop Cardiovascular: Satisfactory Nausea/Vomiting: Absent Respiratory: Satisfactory Pain: Controlled Complications: Absent Post Op Complications Complications None Follow Up Care/Instructions Patient Instructions None needed. Anesthesiology Discharge Order Discharge Order Patient is doing well, no complaints, stable vital signs, no apparent adverse anesthesia problems. No complications reported per nursing. MAEGAN MCKEON CRNA May 10, 2022 08:44
[2022-05-10 09:00] VITALS: BP 113/61
--- NOTE | 2022-05-10 10:13 | OPERATIVE REPORT ---
DATE OF SERVICE: EGD SUMMARY INDICATION FOR THE PROCEDURE: Dysphagia to solids. DESCRIPTION OF PROCEDURE: The patient was placed in the left lateral decubitus position. The endoscope was inserted in the oral cavity and under direct visualization, esophagus was intubated. Endoscope was passed down the esophagus through the stomach and second portion of the duodenum. Careful inspection was made as the endoscope was withdrawn. FINDINGS: The posterior pharynx, epiglottis, arytenoid aperture and true and false vocal folds were unremarkable to visual inspection. Proximal esophagus was unremarkable. There appeared to be likely small traction diverticulum versus presbyesophagus changes about 30 cm without evidence for ulceration or stricturing at this area. The Z-line was noted at 38 cm with findings suggesting a benign stricturing to about 1.5 cm in diameter, active ulceration was not noted. There was erythema at the Z line and approximately 1 to 2 cm hiatal hernia, could not rule out the possibility of short segment Reis's. Biopsies were obtained. There was no evidence for nodularity and no evidence to suggest extrinsic compression. The cardia and fundus of the stomach were unremarkable. Minimal amount of antral erythema, linear was noted. The pylorus, pyloric channel, the duodenal bulb and second portion of duodenum were unremarkable with no evidence for peptic ulcer disease and normal appearing villous architecture. ASSESSMENT: A 1.5 to 2 cm hiatal hernia is present with benign appearing stricturing without overt ulceration and no evidence for definitive ring or web noted. Biopsies were obtained and the patient underwent dilatation with 20 mm balloon dilators to 6 atmospheres, discharged with stable vital signs voicing no complaints and denying any chest pain. At 30 cm at the junction of distal and mid esophagus, there is either presbyesophagus changes versus a small traction diverticulum, although it did not have the appearance to suggest a contributing factor for dysphagia. Discussed the importance of careful attention to mastication, small bites and we will initiate omeprazole 20 mg daily. I will need to likely repeat a TSH in several months to make sure it is not having an impact on her thyroid replacement therapy. Job ID: [id number] DocumentID: [id number] Dictated Date: 05/10/2022 08:06:24 Satellite Instruction Facilitator Date: 05/10/2022 10:13:00 Dictated By: CUATE MCDONALD MD [facility]
== END 2022-05-10 09:20 | disposition home or self-care (01) ==
LOC: ENDO 07:10
PROVIDERS: ATTEND Internal Medicine
DX: K20.90 Esophagitis, unspecified without bleeding (principal); K44.9 Diaphragmatic hernia without obstruction or gangrene; K22.2 Esophageal obstruction

== ENCOUNTER → 2022-08-15 | Outpatient (CLI) | payer MEDICARE, OTHER ==
[~2022-08-15] MED LIST changes: +ALBU8.5H6 IH; -CARB1TAB19 PO; +CARB1TAB32 PO; -RT-ALBUINH IH
--- NOTE | 2022-08-15 12:19 | Diagnostic Imaging Report ---
INDICATION: 77-year-old postmenopausal female. COMPARISON: FINDINGS: AP Spine L1-L4: [BMD (g/cm2): na] [T-Score: na] [Z-Score: na] [BMD Previous: na] [BMD % Change: na] LT Hip Neck: [BMD (g/cm2): 0.830] [T-Score: -1.5] [Z-Score: 0.6] LT Hip Total: [BMD (g/cm2):0.838] [T-Score:-1.3] [Z-Score: 0.5] [BMD Previous: 0.794] [BMD % Change: 5.5] RT Hip Neck: [BMD (g/cm2):0.808] [T-Score:-1.7] [Z-Score:0.4] RT Hip Total: [BMD (g/cm2):0.806] [T-score:-1.6] [Z-Score:0.3] [BMD Previous:0.794] [BMD % Change:1.5] *Indicates significant change from prior examination based on 95% confidence level. World Health Organization criteria for BMD interpretation classify patients as Normal (T-score at or above -1.0), Osteopenic (T-score between -1.0 and -2.5) or Osteoporotic (T-score at or below -2.5). LIMITATIONS AND MODIFICATION: None. FRACTURE RISK (FRAX SCORE): The ten year probability of (%): Major Osteoporotic Fracture: [20.6] Hip Fracture: [4.8] IMPRESSION: 1. Osteopenia (Low bone mass). 2. There has been a statistically significant increase in BMD since prior exam, detailed above. 3. See below National Osteoporosis Foundation guidelines on when to potentially initiate pharmacologic therapy. Based on the National Osteoporosis Foundation Guidelines, pharmacologic treatment should be initiated in any of the following, unless clinical conditions suggest otherwise: * Any patient with prior fragility fracture of the hip or vertebrae. A spine fracture indicates 5X risk for subsequent spine fracture and 2X risk for subsequent hip fracture. * Osteoporosis (T-score <-2.5). * Postmenopausal women and men age 50 and older with low bone mass/osteopenia (T-score between -1.0 and -2.5) by DXA and 10-year major osteoporotic fracture greater than 20% or a 10-year probability of hip fracture greater than 3%. These fracture risks are supplied above in the FRAX score, if applicable. * Clinician judgement and/or patient preferences may indicate treatment for people with 10-year fracture probabilities above or below these levels. Dictated by: Dictated on workstation # [id number]
== END ==
LOC: RAD 09:30
PROVIDERS: ATTEND Internal Medicine
DX: M85.89 Other specified disorders of bone density and structure, multiple sites (principal); Z78.0 Asymptomatic menopausal state
CPT/HCPCS: 77080

== ENCOUNTER → 2022-09-06 | Outpatient (CLI) | payer MEDICARE, OTHER ==
--- NOTE | 2022-09-06 16:35 | Diagnostic Imaging Report ---
EXAMINATION: Chest 2 view HISTORY: COUGH SHORTNESS OF BREATH COMPARISON: 03/01/2018 FINDINGS: Heart size and pulmonary vasculature are normal. The lungs are clear without consolidation, pleural effusion, or pneumothorax. Degenerative changes of the thoracic spine. Osseous structures are otherwise intact. IMPRESSION: 1. No acute radiographic abnormality in the chest. Dictated by: Dictated on workstation # [id number]
== END ==
LOC: RAD 14:58
PROVIDERS: ATTEND Nurse Practitioner Family
DX: R06.02 Shortness of breath (principal); R05.9 Cough, unspecified
CPT/HCPCS: 71046